=== PATIENT | female | born 1975 ===

== ENCOUNTER 2018-01-05 11:29 | Observation (INO) | payer BC ==
[2018-01-05 11:31] VITALS: BMI 20.2
--- NOTE | 2018-01-05 13:05 | ED PDOC ---
HPI: Female Pain Time Seen by Provider: 01/05/18 11:56 Chief Complaint (Nursing): Female Genitourinary Chief Complaint (Provider): Female Genitourinary History Per: Patient History/Exam Limitations: no limitations Additional Complaint(s): 43 years old female with presents to the ED complaining of lower abdominal pain onset 3 days. Patient reports vaginal bleeding started here in the ER. Patient is schedule for D&C on Wed. [employer]: Dr. Duff : 4 Para: 1 Past Medical History Reviewed: Historical Data, Nursing Documentation, Vital Signs Vital Signs: Last Vital Signs Temp 98.5 F 01/05/18 11:32 Pulse 88 01/05/18 11:32 Resp 17 01/05/18 11:32 BP 113/68 01/05/18 11:32 Pulse Ox 100 01/05/18 11:32 - Medical History PMH: No Chronic Diseases - Surgical History Surgical History: No Surg Hx - Family History Family History: States: Unknown Family Hx - Social History Current smoker - smoking cessation education provided: No Alcohol: None Drugs: Denies - Immunization History Hx Tetanus Toxoid Vaccination: No Hx Influenza Vaccination: No Hx Pneumococcal Vaccination: No - Home Medications Home Medications: Ambulatory Orders Medication Instructions Recorded RX: No Known Home Med 01/05/18 - Allergies Allergies/Adverse Reactions: Allergies Allergy/AdvReac Type Severity Reaction Status Date / Time No Known Allergies Allergy Verified 01/12/17 18:43 Review of Systems ROS Statement: Except As Marked, All Systems Reviewed And Found Negative Gastrointestinal: Positive for: Abdominal Pain (lower) Genitourinary Female: Positive for: Vaginal Bleeding Physical Exam - Reviewed Nursing Documentation Reviewed: Yes Vital Signs Reviewed: Yes - Physical Exam Appears: Positive for: In Acute Distress (mild painful) Cardiovascular/Chest: Positive for: Regular Rate, Rhythm. Negative for: Murmur Respiratory: Positive for: Normal Breath Sounds. Negative for: Respiratory Distress Gastrointestinal/Abdominal: Positive for: Tenderness (Suprapubic with minimal vaginal bleed) Pelvic Exam: Positive for: Active Bleeding (Dark blood with clots), Blood. Negative for: No Masses Extremity: Positive for: Normal ROM Neurologic/Psych: Positive for: Alert, Oriented - Laboratory Results Result Diagrams: 01/05/18 15:01 01/05/18 15:01 - ECG O2 Sat by Pulse Oximetry: 100 (RA) Pulse Ox Interpretation: Normal Medical Decision Making Medical Decision Making: Time: 1229 Initial Impression: Initial Plan: --Morphine 2 mg IV [address] Duff if patient can be discharged and continue D&C on Wednesday as scheduled. Dr. Duff states no blood work or imagining is needed. Patient can be discharged when pain is controlled and instructed to follow up on Wednesday for D&C. 1409 Patient is now eating without difficulty and reports improvement of symptoms. Patient is stable for discharge. Counseling was provided and all questions were answered regarding diagnosis. ----- Scribe Attestation: Documented by Alee Roman, acting as a scribe for Nilda Ferguson MD. Provider Scribe Attestation: All medical record entries made by the Scribe were at my direction and personally dictated by me. I have reviewed the chart and agree that the record accurately reflects my personal performance of the history, physical exam, medical decision making, and the department course for this patient. I have also personally directed, reviewed, and agree with the discharge instructions and disposition. Disposition - Clinical Impression Clinical Impression: Missed - Disposition Disposition: Routine/Home Disposition Time: 14:09 Condition: IMPROVED
[2018-01-05 15:15] LABS: BASO % 0.3 % (0.0-2.0); EOS # 0.1 K/uL (0.0-0.7); EOS % 1.1 % (0.0-4.0); HEMOGLOBIN 13.4 g/dL (12.0-16.0); LYMPH # 1.5 K/uL (1.0-4.3); LYMPH % 17.5 % (20.0-40.0); MEAN CELL VOLUME 84.5 fl (81.0-99.0); MEAN CORPUSCULAR HEMOGLOBIN 28.9 pg (27.0-31.0); MEAN CORPUSCULAR HGB CONC 34.2 g/dL (33.0-37.0); MEAN PLATELET VOLUME 9.2 fl (7.2-11.7); MONO # 0.7 K/uL (0.0-0.8); MONO % 7.6 % (0.0-10.0); NEUT # 6.5 K/uL (1.8-7.0); NEUT % 73.5 % (50.0-75.0); NRBC % 0.1 % (0.0-0.0); RBC 4.65 Mil/uL (3.80-5.20); WHITE BLOOD COUNT 8.8 K/uL (4.8-10.8)
[2018-01-05 15:19] LABS: INR 0.9 (0.9-1.2); PARTIAL THROMBOPLASTIN TIME 33.2 Seconds (25.6-37.1); PROTHROMBIN TIME 10.3 Seconds (9.8-13.1)
[2018-01-05 15:21] LABS: ALBUMIN 2.9 g/dL (3.5-5.0); ALT/SGPT 44 U/L (9-52); AST/SGOT 27 U/L (14-36); BLOOD UREA NITROGEN 13 mg/dl (7-17); CALCIUM 8.5 mg/dL (8.4-10.2); GFR AFRICAN-AMERICAN > 60; GFR NON-AFRICAN AMERICAN > 60
--- NOTE | 2018-01-05 17:07 | RAD ---
Date of service: 01/05/2018 HISTORY: Preoperative examination COMPARISON: No prior. FINDINGS: LUNGS: The lungs are well inflated and clear. PLEURA: No significant pleural effusion identified, no pneumothorax apparent. CARDIOVASCULAR: Normal. OSSEOUS STRUCTURES: No significant abnormalities. VISUALIZED UPPER ABDOMEN: Normal. OTHER FINDINGS: None. IMPRESSION: No active pulmonary disease.
[2018-01-05] MEDS ORDERED: Oxytocin 10 Units/ml Inj ONE (17:08)
[2018-01-05] MEDS ORDERED: cefOXitin IV 1 gm in Dextrose 1 GM/50 ML BAG IVPB ONE (17:08)
[2018-01-05] MEDS ORDERED: Propofol 10 mg/ml Inj (20 ML) ONE (17:44)
[2018-01-05] MEDS ORDERED: Succinylcholine 200 mg/10 ml Inj IV ONE (17:44)
[2018-01-05] MEDS ORDERED: Midazolam 2 MG/2 ML VIAL ONE (17:44)
[2018-01-05] MEDS ORDERED: Phenylephrine 10 mg/ml Inj ONE (17:45)
[2018-01-05] MEDS ORDERED: Lactated Ringer's 500 ML IV ONE (18:15)
[2018-01-05] MEDS ORDERED: Lactated Ringer's 1,000 ML IV ONE (18:30)
[2018-01-05] MEDS ORDERED: HYDROmorphone 0.5 mg/0.5 ml ISec IVP PRN (19:14)
[2018-01-05] MEDS ORDERED: Lactated Ringer's 1,000 ML IV SCH ×2 (19:15)
--- NOTE | 2018-01-06 08:17 | CP.PCM.DIS ---
Provider - Provider Date of Admission: 01/05/18 16:42 Attending physician: Mariano aLrry MD Hospital Course - Lab Results Lab Results: Most Recent Lab Values WBC 8.8 K/uL (4.8-10.8) 01/05/18 15:01 RBC 4.65 Mil/uL (3.80-5.20) 01/05/18 15:01 Hgb 13.4 g/dL (12.0-16.0) 01/05/18 15:01 Hct 39.3 % (34.0-47.0) 01/05/18 15:01 MCV 84.5 fl (81.0-99.0) 01/05/18 15:01 MCH 28.9 pg (27.0-31.0) 01/05/18 15:01 MCHC 34.2 g/dL (33.0-37.0) 01/05/18 15:01 RDW 14.0 % (11.5-14.5) 01/05/18 15:01 Plt Count 159 K/uL (130-400) 01/05/18 15:01 MPV 9.2 fl (7.2-11.7) 01/05/18 15:01 Neut % (Auto) 73.5 % (50.0-75.0) 01/05/18 15:01 Lymph % (Auto) 17.5 % (20.0-40.0) L 01/05/18 15:01 [place]ois % (Auto) 7.6 % (0.0-10.0) 01/05/18 15:01 Eos % (Auto) 1.1 % (0.0-4.0) 01/05/18 15:01 Baso % (Auto) 0.3 % (0.0-2.0) 01/05/18 15:01 Neut # (Auto) 6.5 K/uL (1.8-7.0) 01/05/18 15:01 Lymph # (Auto) 1.5 K/uL (1.0-4.3) 01/05/18 15:01 Dubois # (Auto) 0.7 K/uL (0.0-0.8) 01/05/18 15:01 Eos # (Auto) 0.1 K/uL (0.0-0.7) 01/05/18 15:01 Baso # (Auto) 0.0 K/uL (0.0-0.2) 01/05/18 15:01 PT 10.3 Seconds (9.8-13.1) 01/05/18 15:01 INR 0.9 (0.9-1.2) 01/05/18 15:01 APTT 33.2 Seconds (25.6-37.1) 01/05/18 15:01 Sodium 140 mmol/l (132-148) 01/05/18 15:01 Potassium 4.3 MMOL/L (3.6-5.0) 01/05/18 15:01 Chloride 111 mmol/L (98-107) H 01/05/18 15:01 Carbon Dioxide 20 mmol/L (22-30) L 01/05/18 15:01 Anion Gap 13 (10-20) 01/05/18 15:01 BUN 13 mg/dl (7-17) 01/05/18 15:01 Creatinine 0.5 mg/dl (0.7-1.2) L 01/05/18 15:01 Est GFR ( Amer) > 60 01/05/18 15:01 Est GFR (Non-Af Amer) > 60 01/05/18 15:01 Random Glucose 94 mg/dL (65-105) 01/05/18 15:01 Calcium 8.5 mg/dL (8.4-10.2) 01/05/18 15:01 Total Bilirubin 0.2 mg/dl (0.2-1.3) 01/05/18 15:01 AST 27 U/L (14-36) 01/05/18 15:01 ALT 44 U/L (9-52) 01/05/18 15:01 Alkaline Phosphatase 42 U/L (38-126) 01/05/18 15:01 Total Protein 5.8 G/DL (6.3-8.2) L 01/05/18 15:01 Albumin 2.9 g/dL (3.5-5.0) L 01/05/18 15:01 Globulin 2.8 gm/dL (2.2-3.9) 01/05/18 15:01 Albumin/Globulin Ratio 1.0 (1.0-2.1) 07/25/18 15:01 Blood Type A POSITIVE 01/05/18 15:01 Blood Type Confirm A POSITIVE 01/05/18 15:16 Antibody Screen Negative 01/05/18 15:01 BBK History Checked No verified bt 01/05/18 15:01 Discharge Plan - Follow Up Plan Condition: IMPROVED Disposition: HOME/ ROUTINE Instructions: Miscarriage Referrals: Mariano Larry MD [Staff Provider] -
--- NOTE | 2018-01-06 08:20 | CP.PCM.DIS ---
Provider - Provider Date of Admission: 01/05/18 16:42 Attending physician: Mariano Larry MD Time Spent in preparation of Discharge (in minutes): 20 Hospital Course - Lab Results Lab Results: Most Recent Lab Values WBC 8.8 K/uL (4.8-10.8) 01/05/18 15:01 RBC 4.65 Mil/uL (3.80-5.20) 01/05/18 15:01 Hgb 13.4 g/dL (12.0-16.0) 01/05/18 15:01 Hct 39.3 % (34.0-47.0) 01/05/18 15:01 MCV 84.5 fl (81.0-99.0) 01/05/18 15:01 MCH 28.9 pg (27.0-31.0) 01/05/18 15:01 MCHC 34.2 g/dL (33.0-37.0) 01/05/18 15:01 RDW 14.0 % (11.5-14.5) 01/05/18 15:01 Plt Count 159 K/uL (130-400) 01/05/18 15:01 MPV 9.2 fl (7.2-11.7) 01/05/18 15:01 Neut % (Auto) 73.5 % (50.0-75.0) 01/05/18 15:01 Lymph % (Auto) 17.5 % (20.0-40.0) L 01/05/18 15:01 [place] % (Auto) 7.6 % (0.0-10.0) 01/05/18 15:01 Eos % (Auto) 1.1 % (0.0-4.0) 01/05/18 15:01 Baso % (Auto) 0.3 % (0.0-2.0) 01/05/18 15:01 Neut # (Auto) 6.5 K/uL (1.8-7.0) 01/05/18 15:01 Lymph # (Auto) 1.5 K/uL (1.0-4.3) 01/05/18 15:01 Churchill # (Auto) 0.7 K/uL (0.0-0.8) 01/05/18 15:01 Eos # (Auto) 0.1 K/uL (0.0-0.7) 01/05/18 15:01 Baso # (Auto) 0.0 K/uL (0.0-0.2) 01/05/18 15:01 PT 10.3 Seconds (9.8-13.1) 01/05/18 15:01 INR 0.9 (0.9-1.2) 01/05/18 15:01 APTT 33.2 Seconds (25.6-37.1) 01/05/18 15:01 Sodium 140 mmol/l (132-148) 01/05/18 15:01 Potassium 4.3 MMOL/L (3.6-5.0) 01/05/18 15:01 Chloride 111 mmol/L (98-107) H 01/05/18 15:01 Carbon Dioxide 20 mmol/L (22-30) L 01/05/18 15:01 Anion Gap 13 (10-20) 01/05/18 15:01 BUN 13 mg/dl (7-17) 01/05/18 15:01 Creatinine 0.5 mg/dl (0.7-1.2) L 01/05/18 15:01 Est GFR ( Amer) > 60 01/05/18 15:01 Est GFR (Non-Af Amer) > 60 01/05/18 15:01 Random Glucose 94 mg/dL (65-105) 01/05/18 15:01 Calcium 8.5 mg/dL (8.4-10.2) 01/05/18 15:01 Total Bilirubin 0.2 mg/dl (0.2-1.3) 01/05/18 15:01 AST 27 U/L (14-36) 01/05/18 15:01 ALT 44 U/L (9-52) 01/05/18 15:01 Alkaline Phosphatase 42 U/L (38-126) 01/05/18 15:01 Total Protein 5.8 G/DL (6.3-8.2) L 01/05/18 15:01 Albumin 2.9 g/dL (3.5-5.0) L 01/05/18 15:01 Globulin 2.8 gm/dL (2.2-3.9) 01/05/18 15:01 Albumin/Globulin Ratio 1.0 (1.0-2.1) 01/05/18 15:01 Blood Type A POSITIVE 01/05/18 15:01 Blood Type Confirm A POSITIVE 01/05/18 15:16 Antibody Screen Negative 01/05/18 15:01 BBK History Checked No verified bt 01/05/18 15:01 - Hospital Course Hospital Course: uneventful Discharge Exam - Head Exam Head Exam: NORMAL INSPECTION - Additional Findings Additional findings: no heavy bleeding minimal pelvic pain Discharge Plan - Follow Up Plan Condition: IMPROVED Disposition: HOME/ ROUTINE Patient education suggested?: Yes Instructions: Miscarriage Additional Instructions: call office if any problems Referrals: Mariano Larry MD [Staff Provider] -
[2018-01-06 08:30] VITALS: BP 124/80; PULSE 81; RESP 20; TEMP 98.8
--- NOTE | 2018-01-06 12:32 | CARD ---
APPROVED REPORT Date of service: 01/05/2018 EKG Measurement Heart [id number] <Conclusion> Normal sinus rhythm Normal ECG
--- NOTE | 2018-01-07 00:49 | OP ---
PROCEDURE DATE: 01/05/2018 PREOPERATIVE DIAGNOSIS: Missed . POSTOPERATIVE DIAGNOSIS: Missed , pending pathology. SURGEON: Mariano Larry MD ANESTHESIA ADMINISTRATED BY: German Singh MD ANESTHESIA: General anesthesia. PROCEDURE: . DESCRIPTION OF PROCEDURE: With the patient in the dorsal lithotomy position under general anesthesia, the patient was prepped and draped in the usual sterile manner. A straight cath was used to empty the bladder after which a weighted speculum was placed in the posterior vagina. Cervix was grasped anteriorly with a single-tooth tenaculum and dilated. After this was done, the suction curettage was done with a #9 catheter and obtained a [id number] amount of tissue. After this was done, mild sharp curettage was done, getting small amount of tissue. The instruments were removed from the vagina. The patient tolerated the procedure well and was in satisfactory condition on her way to recovery room. Mariano Larry MD
[2018-01-07 09:32] VITALS: O2SAT 100
== END 2018-01-06 12:05 | disposition home or self-care (01) ==
LOC: H.ER 11:29 → H.ERHOLD 16:42 → INTOOBSV 16:42 → H.L&D 17:53 → H.ERHOLD 18:18 → H.MEDSURG1 20:10
PROVIDERS: ADMIT Specialist; ATTEND Specialist
DX: O02.1 Missed abortion (principal)
CPT/HCPCS: 59812; 71045; 80053; 81025; 85025; 85610; 85730; 86850; 86900; 88305; 93005; 99285; G0378; J0330; J0694; J1885; J2001; J2250; J2270; J2370; J2405; J2704; J3010; J7030; J7120